=== PATIENT | male | born 2000 | race Caucasian/White ===

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

== ENCOUNTER → 2022-05-03 | Outpatient (CLI) | payer BC ==
[~2022-05-03] MED LIST: IBUPROFEN600 MG PO
== END ==
LOC: HEART 5 15:28
DX: R07.89 Other chest pain (principal); R00.1 Bradycardia, unspecified; R42 Dizziness and giddiness; R53.83 Other fatigue; R53.1 Weakness

== ENCOUNTER → 2022-05-03 | Outpatient (CLI) | payer BC ==
[2022-05-03 15:01] LABS: HEMOGLOBIN 15.2 gm/dl (14.0-17.5); RED BLOOD COUNT 5.26 M/UL (4.20-5.50); WHITE BLOOD COUNT 5.4 K/UL (4.5-11.0)
[2022-05-03 15:49] LABS: BUN/CREATININE RATIO 11 (0-10)
[2022-05-04 17:12] LABS: LYME TOTAL ANTIBODY EIA Negative (Negative)
== END ==
LOC: LAB 13:50
PROVIDERS: Nurse Practitioner
DX: R53.1 Weakness (principal); R42 Dizziness and giddiness; R00.1 Bradycardia, unspecified; R07.89 Other chest pain; R53.83 Other fatigue; R63.4 Abnormal weight loss
CPT/HCPCS: 71046; 80053; 82550; 84443; 84484; 85025; 86618; 93005

== ENCOUNTER → 2022-05-15 | Outpatient (CLI) | payer BC | LOC: ECHO 13:00 → KOH-I 14:00 | DX: R07.89 Other chest pain (principal); R00.1 Bradycardia, unspecified; R42 Dizziness and giddiness; I08.1 Rheumatic disorders of both mitral and tricuspid valves | CPT/HCPCS: ECHO; 93306 ==

== ENCOUNTER → 2022-06-13 | Outpatient (CLI) | payer BC, OTHER | LOC: HEART 5 11:00 | DX: R07.9 Chest pain, unspecified (principal) ==